=== PATIENT | male | born 1950 | race Caucasian/White ===

== ENCOUNTER → 2020-01-12 | Outpatient (CLI) | payer MEDICARE ==
--- NOTE | 2020-01-12 14:08 | Diagnostic Imaging Report ---
X-ray abdomen KUB History: History of kidney stones. Follow-up. No current issues. Comparison: None. Findings: No definite calcific densities overlying the renal outlines or the course of the ureters to suggest calculi. There is presence of copious amounts of fecal matter in the bowel that could obscure small calculi. Nonobstructive bowel gas pattern. Midline surgical daryl in the abdomen. Linear metallic pelvic densities likely prostatic seeds are prior pelvic surgery. Degenerative changes of the bones. Lung bases clear. Impression: No definite radiographic evidence of renal or ureteric calculi. Signed by: Paul Archibald MD on 01/12/2020 2:05 PM
== END ==
LOC: RAD 12:07
PROVIDERS: ATTEND Urology
DX: N20.0 Calculus of kidney (principal)
CPT/HCPCS: 74018